=== PATIENT | male | born 2000 | race Caucasian/White ===

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

== ENCOUNTER 2020-03-10 17:31 | Emergency (ER) | payer BC ==
[~2020-03-10] VITALS: Ht 185.4 cm; Wt 97.7 kg
[2020-03-10 17:49] VITALS: TEMP 101.5
[2020-03-10 18:54] LABS: BASO # 0.1 (0.0-0.2); BASO % 0.5 % (0.0-2.0); EOS # 0.3 (0.0-0.7); EOS % 2.2 % (0-4.0); GRAN # 10.9 (1.4-6.5); HEMATOCRIT 40.8 % (36.0-47.0); HEMOGLOBIN 14.3 g/dl (12.5-16.1); LYMPH % 7.3 % (20.0-51.0); MEAN CELL VOLUME 86 fl (80.0-95.0); MEAN CORPUSCULAR HEMOGLOBIN 30 pg (26.0-32.0); MEAN CORPUSCULAR HGB CONC 35 g/dl (33.0-37.0); MEAN PLATELET VOLUME 8.9 fl (7.4-10.4); MONO # 1.3 (0.1-0.6); MONO % 9.6 % (1.7-9.3); PLATELET COUNT 456 K/mm3 (130-400); RED BLOOD COUNT 4.72 M/mm3 (4.20-5.60); REDCELL DISTRIBUTION WIDTH-CV 12.1 % (11.5-14.5)
[2020-03-10 19:02] LABS: ALBUMIN 4.6 gm/dL (3.5-5.0); BILIRUBIN,TOTAL 0.5 mg/dL (0.0-1.0); CALCIUM 9.8 mg/dL (8.4-10.2); CREATININE, serum 0.9 (0.66-1.25); POTASSIUM 3.9 mmol/L (3.4-5.0); TOTAL PROTEIN 8.4 gm/dL (6.4-8.2)
[2020-03-10] MEDS ORDERED: ZITHROMAX Z PA250 MG PO (20:10)
[2020-03-10 20:19] VITALS: BP 135/80; PULSE 91
== END 2020-03-10 20:18 | disposition home or self-care (01) ==
LOC: COL.ER 17:31
PROVIDERS: Family Medicine
DX: J06.9 Acute upper respiratory infection, unspecified (principal); Z20.828 Contact with and (suspected) exposure to other viral communicable diseases
CPT/HCPCS: J7120

== ENCOUNTER 2020-03-29 12:21 | Emergency (ER) | payer BC ==
[~2020-03-29] VITALS: Ht 185.4 cm; Wt 63.6 kg
[~2020-03-29 12:21] MED LIST: ZITHROMAX Z PA250 MG PO
[2020-03-29 12:24] VITALS: TEMP 99.2
[2020-03-29 12:42] LABS: BASO # 0.1 (0.0-0.2); BASO % 0.4 % (0.0-2.0); EOS # 0.1 (0.0-0.7); EOS % 0.6 % (0-4.0); GRAN # 15.9 (1.4-6.5); GRAN % 84.1 % (42.2-75.2); HEMATOCRIT 39.7 % (36.0-47.0); HEMOGLOBIN 13.8 g/dl (12.5-16.1); LYMPH # 1.4 (1.2-3.4); LYMPH % 7.2 % (20.0-51.0); MEAN CELL VOLUME 89 fl (80.0-95.0); MEAN CORPUSCULAR HEMOGLOBIN 31 pg (26.0-32.0); MEAN CORPUSCULAR HGB CONC 35 g/dl (33.0-37.0); MEAN PLATELET VOLUME 10.7 fl (7.4-10.4); MONO # 1.3 (0.1-0.6); PLATELET COUNT 425 K/mm3 (130-400); RED BLOOD COUNT 4.45 M/mm3 (4.20-5.60); REDCELL DISTRIBUTION WIDTH-CV 12.4 % (11.5-14.5)
[2020-03-29 12:46] LABS: INR 1.7 (0.8-3.0); PROTHROMBIN TIME 18.9 SECONDS (9.7-12.8)
[2020-03-29 12:51] LABS: ACETAMINOPHEN < 10 ug/mL (10-30); ALANINE AMINOTRANSFERASE 47 U/L (4-49); ALCOHOL(ethanol),MEDICAL < 10 mg/dL; ALKALINE PHOSPHATASE 117 U/L (50-136); ANION GAP 15 mmol/L (7-16); AST,SGOT 32 U/L (15-37); BILIRUBIN,TOTAL 0.7 mg/dL (0.0-1.0); BLOOD UREA NITROGEN 16 mg/dL (9-20); C-REACTIVE PROTEIN 3.3 mg/dL (0.0-0.9); CALCIUM 10.7 mg/dL (8.4-10.2); CARBON DIOXIDE 28 mmol/L (22-30); CHLORIDE 97 mmol/L (98-107); CREATININE, serum 0.89 (0.66-1.25); GLUCOSE 129 mg/dL (74-106); POTASSIUM 4.2 mmol/L (3.4-5.0); SALICYLATE < 1.0 mg/dL; SODIUM 140 mmol/L (137-145); TOTAL PROTEIN 10.2 gm/dL (6.4-8.2)
[2020-03-29 13:02] LABS: TROPONIN-I < 0.012 ng/mL (0.000-0.035)
[2020-03-29] MEDS ORDERED: ZOFRAN 4MG T4 MG/TAB PO (13:02)
[2020-03-29 13:44] VITALS: BP 143/120; PULSE 98
[2020-03-29 13:44] LABS: TRICYCLIC ANTIDEPRESS URINE NEGATIVE
== END 2020-03-29 13:44 | disposition short-term general hospital (02) ==
LOC: COL.ER 12:21
PROVIDERS: Emergency Medicine
DX: G93.6 Cerebral edema (principal); G93.5 Compression of brain; Z20.828 Contact with and (suspected) exposure to other viral communicable diseases
CPT/HCPCS: A4314; J0692; J1100; J1953; J3370; J7050

== ENCOUNTER 2020-04-27 01:16 | Emergency (ER) | payer BC ==
[~2020-04-27] VITALS: Ht 182.9 cm; Wt 90.9 kg
[~2020-04-27 01:16] MED LIST changes: +ZOFRAN 4MG T4 MG/TAB PO
[2020-04-27 01:20] VITALS: TEMP 98.1
[2020-04-27 01:41] LABS: HEMATOCRIT 40.5 % (36.0-47.0); HEMOGLOBIN 13.4 g/dl (12.5-16.1); MEAN CELL VOLUME 96 fl (80.0-95.0); MEAN CORPUSCULAR HEMOGLOBIN 32 pg (26.0-32.0); MEAN CORPUSCULAR HGB CONC 33 g/dl (33.0-37.0); MEAN PLATELET VOLUME 8.7 fl (7.4-10.4); PLATELET COUNT 221 K/mm3 (130-400); RED BLOOD COUNT 4.22 M/mm3 (4.20-5.60); REDCELL DISTRIBUTION WIDTH-CV 17.7 % (11.5-14.5)
[2020-04-27 01:46] LABS: INR 0.9 (0.8-3.0)
[2020-04-27 01:49] LABS: PARTIAL THROMBOPLASTIN TIME 27.3 SECONDS (26.0-37.0)
[2020-04-27 01:52] LABS: ALBUMIN 4.3 gm/dL (3.5-5.0); BILIRUBIN,TOTAL 0.5 mg/dL (0.0-1.0); C-REACTIVE PROTEIN 2.4 mg/dL (0.0-0.9); CALCIUM 9.4 mg/dL (8.4-10.2); CREATININE, serum 0.63 (0.66-1.25); POTASSIUM 3.8 mmol/L (3.4-5.0); TOTAL PROTEIN 7.1 gm/dL (6.4-8.2)
[2020-04-27 02:10] LABS: ANISOCYTOSIS 1+; BAND 5 % (0-10); LYMPHOCYTE 26 % (20.0-51.0); METAMYELOCYTE 2 % (0-0); NEUTROPHILS 50 % (42.0-75.2); PLATELET ESTIMATE NORMAL (NORMAL)
[2020-04-27 03:40] VITALS: BP 136/84; PULSE 106
== END 2020-04-27 03:40 | disposition short-term general hospital (02) ==
LOC: COL.ER 01:16
PROVIDERS: Emergency Medicine
DX: R51.9 Headache, unspecified (principal); U07.1 COVID-19; R22.0 Localized swelling, mass and lump, head
CPT/HCPCS: J2405; J2550; J3010; J7030